=== PATIENT | female | born 1985 | race Hispanic/Latino ===

== ENCOUNTER 2019-08-11 09:57 | Outpatient (CLI) | payer OTHER ==
--- NOTE | 2019-08-11 11:02 | XRay Report ---
CLINICAL DATA: M54.5 Low back pain TECHNICAL DATA: AP and lateral views lumbar spine. FINDINGS: The bone mineralization is normal. Vertebral body heights are normal. Small anterior osteophytes are present L2, L3, L4 and L5 Intervertebral disc spaces are well maintained except for slight narrowing L5-S1. Pedicles and spinous processes are normal in alignment. SI joints and sacrum are normal. IMPRESSION: Mild degenerative changes as noted Signer Name: Joselo Panchal MD Signed: 08/11/2019 10:58 AM Workstation Name: [id number]
== END 2019-08-11 09:58 | disposition home or self-care (01) ==
LOC: XRAY 09:57
PROVIDERS: ATTEND Physician Assistant
DX: M47.816 Spondylosis without myelopathy or radiculopathy, lumbar region (principal); M48.07 Spinal stenosis, lumbosacral region; M25.78 Osteophyte, vertebrae
CPT/HCPCS: 72100